=== PATIENT | male | born 1980 | race Hispanic/Latino ===

== ENCOUNTER 2017-10-25 17:36 | Emergency (ER) | payer SELFPAY ==
[2017-10-25] MEDS ORDERED: Tetracaine HCl/PF 0.5% 4 ML Bottle EYERT ONE (18:00)
--- NOTE | 2017-10-25 18:24 | EDM.PDOC ---
ED HPI GENERAL MEDICAL PROBLEM - General Chief Complaint: Eye Problems Stated Complaint: FB R) EYE Time Seen by Provider: 10/25/17 17:51 Source of Information: Reports: Patient History Limitations: Reports: No Limitations - History of Present Illness INITIAL COMMENTS - FREE TEXT/NARRATIVE: States that he feels that he got something in his eye last night at work. TOday when he went to work noted that it was still red. He denied any pain to the area or change in vision. He states that it currently doesn't hurt or feel different at this time. No concerns with the left eye. States that he forgot to bring his insulin with him from [place] so hasn't taken any for about 3 weeks. States that he can't afford it up here. Did discuss that the pharmacy that he normally gets his prescriptions from will usually mail out meds to him if he has a mailing address while here. Onset: Sudden Location: Reports: Other (right eye) Quality: Reports: Other (no discomfort) Associated Symptoms: Reports: No Other Symptoms Right Eye Pain Score (Numeric/FACES): 5 Past Medical History Endocrine/Metabolic History: Reports: Diabetes, Type I Social & Family History - Tobacco Use Smoking Status *Q: Current Some Day Smoker Years of Tobacco use: 2 Packs/Tins Daily: 0.1 - Caffeine Use Caffeine Use: Reports: None - Recreational Drug Use Recreational Drug Use: No ED ROS GENERAL - Review of Systems Review Of Systems: See Below Constitutional: Reports: No Symptoms HEENT: Denies: Eye Discharge, Eye Pain Respiratory: Reports: No Symptoms Cardiovascular: Reports: No Symptoms GI/Abdominal: Reports: No Symptoms Musculoskeletal: Reports: No Symptoms Skin: Reports: No Symptoms ED EXAM GENERAL W FULL EYE - Physical Exam Exam: See Below Exam Limited By: No Limitations General Appearance: Alert, WD/WN, No Apparent Distress Eye Exam: Bilateral Eye: PERRL Eyelids: Right: Lid Everted for Exam, Bilateral: Normal Appearance Conjunctiva & Sclera: Bilateral: Normal Appearance Cornea Exam: Right: Examined with Flourescein, Bilateral: Normal Appearance Extraocular Movements: Bilateral: Intact Pupillary Size: Bilateral: 4 mm Pupillary Reaction: Bilateral: Brisk Ears: Normal External Exam, Normal Canal, Normal TMs Nose: Normal Inspection Throat/Mouth: Normal Inspection, Normal Oropharynx, No Airway Compromise Head: Atraumatic, Normocephalic Neck: Normal Inspection, Supple, Non-Tender, Full Range of Motion Respiratory/Chest: No Respiratory Distress, Lungs Clear Cardiovascular: Regular Rate, Rhythm Course - Vital Signs Last Recorded V/S: Last Vital Signs Temp 96.6 F 10/25/17 17:36 Pulse 98 10/25/17 17:36 Resp 18 10/25/17 17:36 BP 138/71 10/25/17 17:36 Pulse Ox 98 10/25/17 17:36 - Re-Assessments/Exams Free Text/Narrative Re-Assessment/Exam: 10/25/17 18:15 tetracaine instilled in the right eye with fluroscein. No abrasions or ulcerations or FB noted. Minimal redness noted. Departure - Departure Time of Disposition: 18:17 Disposition: Home, Self-Care 01 Condition: Good Clinical Impression: Irritation of right eye - Discharge Information Additional Instructions: may return to work Use visine or allergy drops as needed for any redness in your eyes Need to call your pharmacy in [place] where you get your insulin and have then ship it to you here in [place] and start it as soon as you can. Return to the clinic if you have any further concerns. - Problem List & Annotations (1) Irritation of right eye SNOMED Code(s): 923404593 Code(s): H57.8 - OTHER SPECIFIED DISORDERS OF EYE AND ADNEXA Status: Acute Priority: High - Problem List Review Problem List Initiated/Reviewed/Updated: Yes
== END 2017-10-25 18:25 | disposition home or self-care (01) ==
LOC: CC.ED 17:36
DX: H57.8 Other specified disorders of eye and adnexa (principal); E10.9 Type 1 diabetes mellitus without complications; F17.210 Nicotine dependence, cigarettes, uncomplicated; Y99.0 Civilian activity done for income or pay
CPT/HCPCS: 99283